=== PATIENT | female | born 1950 | race Caucasian/White ===

== ENCOUNTER → 2017-06-17 | Outpatient (CLI) | payer MEDICARE ==
[~2017-06-17] MED LIST: ACET30TAB PO; ALEN70TA39; AMLO2.5T; CALC600T60 PO; FENO1CAP2; FISH120012 PO; FLUT1SPR2; FLUT22IN; LORA10CA PO; MULT1TAB18 PO; OMEP20CA3; SIMV40TA2; TRAM50TA2; TYLE650T35 PO; VITA-182 PO
--- NOTE | 2017-06-17 13:16 | REP ---
REASON: Knee pain. Possible Campos's cyst. COMPARISON: None. FINDINGS: The compartments are symmetric and relatively well maintained. There is no acute fracture or destructive osseous lesion. If a Campos's cyst is of clinical concern, then followup with ultrasonography. There does appear to be potential soft tissue fullness in the posterior soft tissues, however, that fullness is above the knee joint and its significance is uncertain. Signed by Jamaal Sweeney DO 06/17/2017 01:53 P
== END ==
LOC: M LRY 11:44
PROVIDERS: ATTEND Physician Assistant
DX: M25.562 Pain in left knee (principal)

== ENCOUNTER 2017-06-20 19:37 | Emergency (ER) | payer MEDICARE ==
[~2017-06-20] VITALS: Ht 157.5 cm; Wt 74.1 kg
[2017-06-20] MEDS ORDERED: ALEN70TA39 (20:03)
[2017-06-20] MEDS ORDERED: AMLO2.5T (20:03)
[2017-06-20] MEDS ORDERED: SIMV40TA2 (20:03)
[2017-06-20] MEDS ORDERED: FLUT22IN (20:03)
[2017-06-20] MEDS ORDERED: MULT1TAB18 PO (20:03)
[2017-06-20] MEDS ORDERED: FLUT1SPR2 (20:03)
[2017-06-20] MEDS ORDERED: TYLE650T35 PO (20:03)
[2017-06-20] MEDS ORDERED: FENO1CAP2 (20:03)
[2017-06-20] MEDS ORDERED: CALC600T60 PO (20:03)
[2017-06-20] MEDS ORDERED: VITA-182 PO (20:03)
[2017-06-20] MEDS ORDERED: FISH120012 PO (20:03)
[2017-06-20] MEDS ORDERED: OMEP20CA3 (20:03)
[2017-06-20] MEDS ORDERED: LORA10CA PO (20:03)
[2017-06-20] MEDS ORDERED: TRAM50TA2 (20:03)
[2017-06-20] MEDS ORDERED: ACET30TAB PO (21:36)
[2017-06-20 21:41] VITALS: BP 166/76
[2017-06-20] MEDS ORDERED: ACETAMINOPH W/CODEINE #3 TAB UD PO ONE (21:45)
--- NOTE | 2017-06-21 07:49 | REPUSA ---
CLINICAL HISTORY: Lower extremity swelling. TECHNIQUE: Duplex ultrasound of the left lower extremity veins was performed with grayscale, color fl ow imaging and Doppler spectral analysis, without and with compression. LEFT LOWER EXTREMITY VENOUS DUPLEX ULTRASOUND: There is normal compressibility, flow and augmentation of the common femoral, superficial femoral, po pliteal, posterior tibial, peroneal and greater saphenous veins. There is a complex fluid collection in the posterior popliteal fossa measuring 4.4 x 0.7 x 2.7 cm. IMPRESSION: 1. No evidence of DVT in the left lower extremity. 2. Complex Campos cyst.
== END 2017-06-20 21:46 | disposition home or self-care (01) ==
LOC: M ED 19:37
DX: M71.22 Synovial cyst of popliteal space [Baker], left knee (principal)

== ENCOUNTER → 2017-06-21 | Outpatient (CLI) | payer MEDICARE ==
[2017-06-21 10:33] LABS: BASO # 0.1 K/mm3 (0.0-0.2); BASO % 0.9 % (0.0-1.0); EOS # 0.2 K/mm3 (0.0-0.50); EOS % 3.8 % (0.0-3.0); LARGE UNSTAINED CELL # 0.2 K/mm3 (0.0-0.4); LARGE UNSTAINED CELL % 2.3 % (0.0-4.0); LYMPH # 1.9 K/mm3 (1.5-4.5); LYMPH % 26.6 % (24.0-44.0); MEAN CORPUSCULAR HEMOGLOBIN 30.2 pg (27.0-33.0); MEAN CORPUSCULAR HGB CONC 32.8 g/dl (32.0-36.5); MEAN CORPUSCULAR VOLUME 92.3 fl (80.0-96.0); MONO # 0.5 K/mm3 (0.0-0.8); MONO % 7.4 % (0.0-5.0); NEUTROPHILS # 3.8 K/mm3 (1.8-7.7); PLATELET COUNT, AUTOMATED 294 k/mm3 (150-450); RED CELL DISTRIBUTION WIDTH 13.4 % (11.5-14.5); WHITE BLOOD COUNT 6.5 K/mm3 (4.0-10.0)
[2017-06-21 10:50] LABS: GLUCOSE, FASTING 102 MG/DL (80-110); URIC ACID 4.6 MG/DL (2.6-6.0)
[2017-06-21 12:47] LABS: ERYTHROCYTE SEDIMENTATION RATE 20 mm/hr (0-30)
[2017-06-23 00:06] LABS: Lyme Disease IgG/IgM Antibodie <0.91 ISR (0.00-0.90); Lyme Disease IgM Ab Quantitati <0.80 index (0.00-0.79)
== END ==
LOC: M LAB 06-20 19:05
PROVIDERS: ATTEND Physician Assistant
DX: M25.462 Effusion, left knee (principal)